=== PATIENT | male | born 1980 | race African-American/Black ===

== ENCOUNTER 2018-08-21 09:19 | Emergency (ER) | payer MEDICAID, OTHER, SELFPAY ==
[~2018-08-21] VITALS: Ht 177.8 cm; Wt 94.0 kg
[2018-08-21 09:25] VITALS: BP 135/94
[2018-08-21] MEDS ORDERED: SILVER SULF. CRM 1% , 25GM TP ONE (10:00)
[2018-08-21] MEDS ORDERED: SILVER SULF. CRM 1% , 25GM ONE (10:00)
== END 2018-08-21 10:12 | disposition home or self-care (01) ==
LOC: ED 10:00
DX: T23.171A Burn of first degree of right wrist, initial encounter (principal); X11.8XXA Contact with other hot tap-water, initial encounter; Y93.89 Activity, other specified; Y92.009 Unspecified place in unspecified non-institutional (private) residence as the place of occurrence of the external cause; Y99.8 Other external cause status
CPT/HCPCS: 16000; 99284